=== PATIENT | female | born 1970 | race Caucasian/White ===

== ENCOUNTER 2023-06-20 16:11 | Outpatient (OUT) | payer OTHER, SELFPAY ==
--- NOTE | 2023-06-20 | XR_ITS ---
[address] [address] Patient Name: ZACHERY SLOAN MRN: [id number] date: 1970 Sex: F Assigned Patient Location: [facility] Current Patient Location: Accession/Order Number: [id number] Exam Date: 06/20/2023 16:22 Report Date: 06/21/2023 07:32 At the request of: KEISHA BATISTA Procedure: XR shoulder RT min 2V PROCEDURE: XR shoulder RT min 2V HISTORY: Shoulder impingement M75.40 ; chronic right shoulder pain COMPARISON: XR shoulder right 09/07/2021 FINDINGS: BONES:Narrowing of the acromioclavicular joint with small undersurface osteophytes. Unremarkable glenohumeral joint. No fracture, dislocation, or bone lesion. SOFT TISSUES:No visible soft tissue swelling. EFFUSION:None visible. OTHER: Negative. XR/XR shoulder RT min 2V IMPRESSION: 1. Stable mild degenerative changes of the acromioclavicular joint which may contribute to rotator cuff injury. 2. No acute bone abnormality. Electronically authenticated by: DEIDRA LANDERS Date: 06/21/2023 07:32
== END 2023-06-20 16:12 | disposition home or self-care (01) ==
LOC: RAD 16:15
PROVIDERS: PCP Family Medicine; Visit Provider Family Medicine
DX: M75.40 Impingement syndrome of unspecified shoulder (principal); M19.011 Primary osteoarthritis, right shoulder
CPT/HCPCS: 73030

== ENCOUNTER 2023-07-12 07:22 | Day surgery (SDC) | payer OTHER, SELFPAY ==
--- NOTE | 2023-07-12 07:28 | MR_ITS ---
[facility] [place] [id number] Patient Name: ZACHERY SLOAN MRN: [facility]:[id number] date: 1970 Sex: F Assigned Patient Location: MRI Current Patient Location: Accession/Order Number: [id number] Exam Date: 07/12/2023 08:40 Report Date: 07/12/2023 11:14 At the request of: KEISHA BATISTA Procedure: MR shoulder RT w con EXAMINATION: MR shoulder RT w con HISTORY: Shoulder Impingement M75.40 ; right shoulder pain, limited range of motion COMPARISON: No relevant comparison available. TECHNIQUE: A variety of imaging planes and parameters were utilized for visualization of suspected pathology. Images were performed with intra-articular contrast. FINDINGS: ROTATOR CUFF REGION CUFF TENDONS: A partial thickness tear involves the undersurface of the supraspinatus tendon. CUFF MUSCLES: Normal appearing muscles. DELTOID: Normal. No significant atrophy or tear. LONG BICEPS TENDON: Duplicated versus split tendon. No abnormal signal within the tendon or appreciable surrounding edema to suggest acute injury. LABRUM/BICEPS ANCHOR SUPERIOR: No visible labral tear or biceps anchor pathology. ANTERIOR/INFERIOR: No visible tear or attrition. POSTERIOR: No posterior labrum abnormality. CAPSULE ANTERIOR/INFERIOR: No visible capsular laxity or thickening. Type I origin of the middle glenohumeral ligament. POSTERIOR: No visible capsular laxity or thickening. AC JOINT REGION AC JOINT: Moderate osteoarthropathy with mild-moderate narrowing of the underlying coracoacromial arch. AC LIGAMENTS: Normal acromioclavicular ligament. CC LIGAMENTS: Normal coracoclavicular ligaments. ACROMION: Normal horizontal (Type I) configuration. SUBACROMIAL BURSA: Normal. No significant effusion. HYALINE CARTILAGE: Normal. No visible cartilage narrowing or focal defect. OTHER BONES: Normal proximal humerus, glenoid, and coracoid. OTHER OBSERVATIONS: Negative. No other significant findings or glenohumeral effusion. MR/MR shoulder RT w con IMPRESSION: 1. Partial-thickness tear involving the undersurface of the distal supraspinatus tendon. 2. Suspect duplicated versus split tendon of the long biceps tendon. I suspect this is developmental or chronic. 3. No appreciable labral tear. Electronically authenticated by: DEIDRA LANDERS Date: 07/12/2023 11:14
--- NOTE | 2023-07-12 07:29 | FL_ITS ---
[address] [address] Patient Name: ZACHERY SLOAN MRN: [id number] date: 1970 Sex: F Assigned Patient Location: MRI Current Patient Location: MRI Accession/Order Number: [id number] Exam Date: 07/12/2023 07:45 Report Date: 07/12/2023 10:38 At the request of: KEISHA BATISTA Procedure: FL arthrogram shoulder EXAMINATION: FL arthrogram shoulder, FL guided needle placement HISTORY: Right shoulder pain after falling COMPARISON: XR shoulder right 06/20/2023 TECHNIQUE: An arthrogram was performed under fluoroscopic guidance using non-ionic contrast material in the usual sterile manner after obtaining informed consent. Standard level fluoroscopic mode of operation utilized. FINDINGS: JOINT: Right shoulder NEEDLE: 25 gauge, 3.5 spinal needle. MEDICATION: 2 mL buffered 1% lidocaine for subcutaneous anesthesia. Approximately 8 mL injected into joint space consisting of a mixture of 5 mL Omnipaque-300, 5 mL 1% Xylocaine and 0.2 mL Dotarem. TECHNIQUE: Anterior approach under fluoroscopic guidance. CLINICAL: No change in pain following the injection. COMPLICATIONS: None. OTHER: Negative. FL/FL arthrogram shoulder IMPRESSION: 1. Technically successful arthrogram without complication. 2. Please see separate MRI arthrogram report. Electronically authenticated by: DEIDRA LANDERS Date: 07/12/2023 10:38
--- NOTE | 2023-07-12 07:29 | FL_ITS ---
[address] [address] Patient Name: ZACHERY SLOAN MRN: [facility]:[id number] date: 1970 Sex: F Assigned Patient Location: MRI Current Patient Location: MRI Accession/Order Number: [id number] Exam Date: 07/12/2023 07:45 Report Date: 07/12/2023 10:38 At the request of: KEISHA BATISTA Procedure: FL guided needle placement EXAMINATION: FL arthrogram shoulder, FL guided needle placement HISTORY: Right shoulder pain after falling COMPARISON: XR shoulder right 06/20/2023 TECHNIQUE: An arthrogram was performed under fluoroscopic guidance using non-ionic contrast material in the usual sterile manner after obtaining informed consent. Standard level fluoroscopic mode of operation utilized. FINDINGS: JOINT: Right shoulder NEEDLE: 25 gauge, 3.5 spinal needle. MEDICATION: 2 mL buffered 1% lidocaine for subcutaneous anesthesia. Approximately 8 mL injected into joint space consisting of a mixture of 5 mL Omnipaque-300, 5 mL 1% Xylocaine and 0.2 mL Dotarem. TECHNIQUE: Anterior approach under fluoroscopic guidance. CLINICAL: No change in pain following the injection. COMPLICATIONS: None. OTHER: Negative. FL/FL guided needle placement IMPRESSION: 1. Technically successful arthrogram without complication. 2. Please see separate MRI arthrogram report. Electronically authenticated by: DEIDRA LANDERS Date: 07/12/2023 10:38
[2023-07-12] MEDS: LIDOCAINE HCL 15 ML, SODIUM BICARBONATE 2 MEQ INJ (08:10)
--- NOTE | 2023-07-12 10:37 | SUR.PREOP ---
07/05/23 Pt instructed on proceure, date, time, and prep. Pt instructed to hold ASA x 5 days prior to procedure.
== END 2023-07-12 08:30 | disposition home or self-care (01) ==
LOC: MRI 07:22
PROVIDERS: Radiology Diagnostic Radiology; PCP Family Medicine; Visit Provider Family Medicine
DX: M25.511 Pain in right shoulder (principal); G89.29 Other chronic pain; M75.41 Impingement syndrome of right shoulder; M75.111 Incomplete rotator cuff tear or rupture of right shoulder, not specified as traumatic
CPT/HCPCS: 23350; 73222; 77002; A9575; Q9967

== ENCOUNTER 2024-03-29 12:35 | Outpatient (OUT) | payer OTHER, SELFPAY ==
--- OUTSIDE RECORDS SUMMARY | 2024-03-29 12:39 | XMS_ITS | CCD ---
Author Organization [facility] Care Team Providers Care Counseling Director Name Role Phone Andra Trejo Unavailable JanetLeonel Unavailable Roxi Mich Unavailable LESTER ., DR VALDES Admitting Unavailable HOY ., DR VALDES Attending Unavailable HOY ., DR VALDES Primary Care Unavailable HOY ., DR VALDES Consulting Unavailable ZIEBER, DR DEIDRA Pickering Consulting Unavailable HOY ., DR VALDES Admitting Unavailable HOY ., DR VALDES Attending Unavailable HOY ., DR VALDES Primary Care Unavailable HOY ., DR VALDES Consulting Unavailable WEST, DR JUSTO Anderson Consulting Unavailable HOY ., DR VALDES Admitting Unavailable HOY ., DR VALDES Attending Unavailable HOY ., DR VALDES Primary Care Unavailable HOY ., DR VALDES Consulting Unavailable WEST, DR JUSTO Anderson Consulting Unavailable HOY ., DR VALDES Admitting Unavailable HOY ., DR VALDES Attending Unavailable HOY ., DR VALDES Primary Care Unavailable HOY ., DR VALDES Consulting Unavailable HOY ., DR VALDES Admitting Unavailable HOY ., DR VALDES Attending Unavailable HOY ., DR VALDES Primary Care Unavailable HOY ., DR VALDES Consulting Unavailable WEST, DR JUSTO Anderson Consulting Unavailable HOY ., DR VALDES Admitting Unavailable HOY ., DR VALDES Attending Unavailable HOY ., DR VALDES Primary Care Unavailable HOY ., DR VALDES Consulting Unavailable RAVENEBER, DR DEIDRA Pickering Consulting Unavailable Keisha Escudero Primary Care Physician Garfield TREVIÑO Attending Unavailable Keisha Escudero Referring Unavailable NILL, Garfield R Admitting Unavailable NILL, Garfield R Attending Unavailable NILL, Garfield R Referring Unavailable DEIDRA NGUYEN Referring Unavailable NGUYENDEIDRA LAWRENCE Referring Unavailable Allergies Allergy Classification Reported Allergen(s) Allergy Type Date of Onset Reaction(s) Facility Unclassified (1 source) No Known Medication Allergies; Translations: [No Known Medication Allergies] Propensity to adverse reactions (disorder) [facility] Repository Medications Current Medications Medication Drug Class(es) Dates Sig (Normalized) Sig (Original) ALPRAZolam 0.25 mg oral tablet (2 sources) Benzodiazepine Start: 06-13-2023 take 1 tablet by mouth three times daily as needed for anxiety alprazolam 0.25 mg Tab 0.25 mg = 1 tab(s), Oral, TID, PRN as needed for anxiety, Refills(s) 0 Start Date: 06/13/23 Status: Ordered aspirin 81 mg delayed release oral tablet (2 sources) Platelet Aggregation Inhibitor, Nonsteroidal Anti-inflammatory Drug Start: 07-03-2023 take 1 tablet by mouth once daily aspirin 81 mg Oral EC Tab 81 mg = 1 tab(s), Oral, Daily, Refills(s) 0, Blood Thinner Start Date: 07/03/23 Status: Ordered indomethacin 50 mg oral capsule (2 sources) Nonsteroidal Anti-inflammatory Drug take 1 capsule by mouth every twelve hours Indomethacin 50 MG 1 capsule with food or milk Orally Twice a day Active Multi Vitamins oral tablet (2 sources) Start: 07-03-2023 take 1 tablet by mouth once daily Multi Vitamins oral tablet 1 tab(s), Oral, Daily, Refill(s) 0, Prophylaxis Start Date: 07/03/23 Status: Ordered Start: 07-03-2023 take 1 tablet by melecio th once daily Multi Vitamins oral tablet 1 tab(s), Oral, Daily, Refill(s) 0 Start Date: 07/03/23 Status: Ordered oxaprozin 600 mg oral tablet (2 sources) Nonsteroidal Anti-inflammatory Drug Start: 06-13-2023 take 2 tablets by mouth once daily Daypro 600 mg Tab 1,200 mg = 2 tab(s), Oral, Daily, Refills(s) 0, Pain Start Date: 06/13/23 Status: Ordered Completed/Discontinued Medications Medication Drug Class(es) Dates Sig (Normalized) Sig (Original) triamcinolone acetonide 40 mg/ml injectable suspension (2 sources) Corticosteroid Start: 10-18-2021 Kenalog-40 Oct, 40 mg Problems Active Problems Problem Classification Problem Date Documented Date Episodic/Chronic Anxiety disorders (2 sources) Anxiety 06-13-2023 Chronic Endometriosis (2 sources) Endometriosis (clinical) 06-13-2023 Chronic Headache; including migraine (2 sources) Migraine 06-13-2023 Chronic Osteoarthritis (4 sources) Arthritis of right acromioclavicular joint; Translations: [Primary osteoarthritis, right shoulder] Onset: 10-18-2021 Resolved: 11-08-2021 Chronic Other and unspecified benign neoplasm (1 source) Polyp of colon; Translations: [Polyp of colon] Onset: 08-03-2023 Episodic Other connective tissue disease (2 sources) Supraspinatus tear; Translations: [Unspecified rotator cuff tear or rupture of right shoulder, not specified as traumatic] Episodic Other nutritional; endocrine; and metabolic disorders (2 sources) Overweight 06-13-2023 Episodic Other nutritional; endocrine; and metabolic disorders (2 sources) Overweight in adulthood with body mass index of 25 or more but less than 30 07-03-2023 Episodic Other screening for suspected conditions (not mental disorders or infectious disease) (5 sources) Encounter for screening mammogram for malignant neoplasm of breast; Translations: [Screening for malignant neoplasm of colon done] Onset: 04-05-2022 Episodic Residual codes; unclassified (1 source) Family history of malignant neoplasm of breast; Translations: [FAMILY HX MALIG NEOPLASM OF BREAST] Onset: 04-10-2022 Episodic Residual codes; unclassified (1 source) Family history of malignant neoplasm of digestive organs; Translations: [FAM HX MALIG NEOPLASM DIGESTIV ORGN] Onset: 04-10-2022 Episodic Thyroid disorders (4 sources) Hypothyroidism, unspecified; Translations: [HYPOTHYROIDISM UNSPECIFIED] Onset: 04-21-2022 Chronic Unclassified (3 sources) LOW BACK PAIN, UNSPECIFIED; Translations: [LOW BACK PAIN, UNSPECIFIED] Onset: 09-09-2021 Unclassified (2 sources) Patient encounter status 07-03-2023 Past or Other Problems Problem Classification Problem Date Documented Da te Episodic/Chronic Immunizations and screening for infectious disease (1 source) Contact with and (suspected) exposure to other viral communicable diseases Onset: 02-06-2021 Resolved: 02-06-2021 Episodic Other connective tissue disease (2 sources) Unspecified rotator cuff tear or rupture of right shoulder, not specified as traumatic Onset: 10-18-2021 Resolved: 11-08-2021 Episodic Other connective tissue disease (2 sources) Other enthesopathies, not elsewhere classified Onset: 10-18-2021 Resolved: 11-08-2021 Episodic Other connective tissue disease (1 source) Impingement syndrome of right shoulder; Translations: [IMPINGEMENT SYNDROME RIGHT SHOULDER] Onset: 09-09-2021 Episodic Other non-traumatic joint disorders (4 sources) Pain in right shoulder; Translations: [PAIN IN RIGHT SHOULDER] Onset: 09-26-2021 Episodic Sprains and strains (1 source) Superior glenoid labrum lesion of right shoulder, initial encounter; Translations: [SUP GLND LABRUM LES RT SHLDR INIT] Onset: 09-28-2021 Episodic Unclassified (1 source) LOW BACK PAIN, UNSPECIFIED; Translations: [LOW BACK PAIN, UNSPECIFIED] Onset: 09-07-2021 Results Test Name Value Interpretation Reference Range Facility IntraOperative Documentson 0 08-09-2023 IntraOperative Documents [id number] [facility] Reminderson 08-08-2023 Reminders - From: Yenny Soliman LPN To: N - Clinical; Sent: 08/08/2023 10:21:58 EDT Show up: 07/03/2028 07:00:00 EDT Subject: colonoscopy recall Due Date/Time: 08/02/2028 07:00:00 EDT Reminder/Recall Patient due for surveillance colonoscopy 08/02/2028 due to history of tubular adenoma. Normal [facility] Consenton 08-06-2023 Consent [id number] [facility] Discharge Instructionson Discharge Instructions [id number] [facility] Main OR Intraoperative Recor don 08-06-2023 Main OR Intraoperative Record IntraOp Document Type FT Summary Primary Physician: KAMILA ESCOBEDO, Garfield Pickering Finalized Date/Time: 08/06/23 10:42:07 Pt. Name: ZACHERY SLOAN Luis/Sex: 1970 Female Med Rec #: [id number] Physician: Garfield TREVIÑO MD [facility] #: [id number] Pt. Type: O Room/Bed: / Admit/Disch: 08/03/23 06:51:04 - 08/03/23 23:59:59 Institution: Case Times FT Entry 1 Patient Times In Room 08/03/23 07:48:00 Out Room 08/03/23 08:10:00 Procedure Times Start 08/03/23 07:52:00 Stop 08/03/23 08:07:00 Anesthesia Times Start 08/03/23 07:48:00 Stop 08/03/23 08:10:00 Time at [place] 08/03/23 07:58:00 Last Modified By: Mayi MOYER, Rissa Craig 08/03/23 08:11:07 General Comments: 08/06/23 Chart opened for charge review per Oscar Del Valle RN. [place] Case Attendance FT Entry 1 Entry 2 Entry 3 Case Attendee Kristopher SALMON, SPOOLER OPERATOR, Queen Mayi MOYER, Val Pond Role Performed SPOOLER OPERATOR Jackscrew Man - Primary Scrub - Primary Time In 08/03/23 07:48:00 08/03/23 07:48:00 08/03/23 07:48:00 Time Out 08/03/23 08:10:00 08/03/23 08:10:00 08/03/23 08:10:00 Procedure COLONOSCOPY(.) COLONOSCOPY(.) COLONOSCOPY(.) Comments Dr. Ortega supervising case Last Modified By: Mayi RN, Rissa See RN, Rissa See RN, Rissa F 08/03/23 08:11:08 F 08/03/23 08:11:08 F 08/03/23 08:11:08 Entry 4 Entry 5 Case Attendee Lynn WAGGONER, Nga TREVIÑO MD, Garfield Silva Role Performed Staff - Other Surgeon - Primary Time In 08/03/23 07:48:00 08/03/23 07:48:00 Time Out 08/03/23 08:10:00 08/03/23 08:10:00 Procedure COLONOSCOPY(.) COLONOSCOPY(.) Comments help in room Last Modified By: Mayi RN, Rissa See RN, Rissa Craig 08/03/23 08:11:08 F 08/03/23 08:11:08 Perioperative Protocols FT Pre-Care Text: Implements protective measures prior to operative or invasive procedure, confirms identity before the operative or invasive procedure, verifies operative procedure, surgical site, and laterality Entry 1 Procedure(s) COLONOSCOPY(.) Patient Identity Birthday, ID Band Verified (select at Check, Patient least 2): Participation Consents / H and P Anesthesia Consent, Operative Site N/A Verified HandP, Surgery/Procedure Marking Verified Consent Surgical Site No Laterality Verified n/a Verified Procedure Verified Yes Correct Patient Yes Position Verified Availability Equipment, Medication Prep Dry n/a Verified (If Applicable) PreOp Antibiotic No Time Out Kristopher SALMON, BRIEN, Queen Ruben Perez NTimoteo, Val Maya, Rissa See RN, Schafer CST, KAMILA Peña MD, Michael R Time Out Complete 08/03/23 07:49:00 Outcomes Met? Yes Last Modified By: Rissa See RN 08/03/23 07:52:12 Post-Care Text: The patient is free from signs and symptoms of injury caused by extraneous objects Allergy Information FT Pre-Care Text: Verifies allergies Entry 1 Allergies Reviewed? Yes Allergies Reviewed Self/Patient With Outcomes Met? Yes Last Modified By: Rissa See RN 08/03/23 07:52:21 Post-Care Text: The patient received appropriate medication(s) safely administered during the perioperative period Surgical Procedures FT Entry 1 Procedure Description Procedure COLONOSCOPY Modifiers . Surgeon Description Colonoscopy with rectal polypectomy. Primary Procedure Yes Primary Surgeon Garfield TREVIÑO MD Start 08/03/23 07:52:00 Stop 08/03/23 08:07:00 Anesthesia Type General Surgical Service General Wound Class 2 - Clean-Contaminated Last Modified By: Rissa See RN 08/03/23 08:08:02 General Case Data FT Pre-Care Text: Classifies surgical wound, implements aseptic technique, initiates traffic control Entry 1 Case Information OR ENDO 1 FT Case Level Level 2 Wound Class 2 - Clean-Contaminated Specialty General ASA Class 2 Preop Diagnosis Screening Postop Same As Preop No Postop Diagnosis Rectal polyp Outcomes Met? Yes Last Modified By: Rissa See RN 08/03/23 08:04:15 Post-Care Text: The patient is free from signs and symptoms of infection Skin Assessment (Pre Procedure) FT Pre-Care Text: Implements protective measures to prevent skin/ tissue injury due to thermal or mechanical sources Evaluates for signs and symptoms of physical injury to skin and tissue Entry 1 Skin Integrity Intact, [place], Warm, and Skin Abnormality No Dry Outcomes Met? Yes Last Modified By: Mayi MOYER, Rissa Craig 08/03/23 07:52:49 Post-Care Text: The patient is free from signs and symptoms of injury caused by extraneous objects Patient Positioning FT Pre-Care Text: Identifies physical alterations that require additional precautions for procedure-specific positioning, verifies presence of prosthetics or corrective devices, positions the patient, evaluates the patient for signs and symptoms of injury as a result of positioning Entry 1 Procedure COLONOSCOPY(.) Body Position Lateral, right (more content not included)... Normal [facility] Postoperative Documentson Postoperative Documents [id number] Normal [facility] Colonoscopy Procedure Report on 08-03-2023 Colonoscopy Procedure Report Patient: ZACHERY SLOAN Age: 53 years Sex: Female : 1970 Associated Diagnoses: None Author: Garfield TREVIÑO MD Pre-Procedure Procedure Date 08/03/2023 08:00:00 . Procedure Type: Colonoscopy with removal of tumor(s), polyp(s), or other lesion(s) by cold snare technique. Procedure provider Performed by Garfield TREVIÑO MD. Referred by Keisha Escudero MD. Current history and physical Documented on chart. Colorectal neoplasm risk assessment Average risk. Informed Consent After discussing the rationale, risks and benefits, and alternatives to this procedure, the patient provided signed consent for the procedure. Pre-procedure diagnosis: Age 50 years or over. ASA Classification: Class II. . Monitoring: See anesthesia record. . Procedure The procedure was performed in the hospital. See anesthesia record for sedation given during procedure. Rectal exam was performed and was normal. The patient was positioned starting in the left lateral decubitus position. Endoscope type used was an adult-size. The endoscope was lubricated then introduced through the anus. The scope was advanced to the cecum verified by photographing the appendiceal orifice, verified by photographing the ileocecal valve. No difficulties encountered during the procedure. The bowel preparation quality was good and was adequate (see polyps greater than or equal to 6 millimeters). The patient tolerated the procedure well. Findings A single polyp 4 mm in size was noted. The polyp(s) is sessile (0-Is). Intervention(s) included polypectomy with cold snare. Intervention was successful. Images Procedure images: anal canal rectal polyp ileocecal valve appendiceal orifice . Post-Procedure Complications: none. Estimated blood loss: 1 milliliters. Specimens: sent to pathology. Devices/ implants: none left in place. Impression and Plan Diagnosis: Colon polyp ([id number] K63.5, Discharge, Medical). Course: Progressing as expected. Recommendations: Repeat colonoscopy:: In 5 years. Follow-up:: Await biopsy results in 3-5 days. Diet:: Regular diet. Medication resumption:: Continue current medications. Return to activities:: After 24 hours. Education and Follow-up: Counseled: Family. [facility] Comment on above: Other Comment: Dulce desouza Attachment - attachment storage system not supported [id number] Can be viewed in source systemMissing Attachment - attachment storage system not supported [id number] Can be viewed in source systemMissing Attachment - attachment storage system not supported [id number] Can be viewed in source systemMissing Attachment - attachment storage system not supported [id number] Can be viewed in source system Consent for Treatmenton 07-17 Consent for Treatment [id number]#[id number] [facility] Discharge Instructionson Discharge Instructions ZACHERY SLOAN :1970 Visit Date:08/03/2023 Inpatient Discharge Instructions Your Care Team Admitting Physician - Garfield TREVIÑO MD Referring Physician - Garfield TREVIÑO MD Reason for Your Visit SCREENING Your Diagnosis Colon polyp Tests Performed Pathology Tissue Exam -- Results Pending -- Please visit your patient portal for your results or contact your primary care physician. This Is Your Medications List alprazolam (alprazolam 0.25 mg Tab) aspirin (aspirin 81 mg Oral EC Tab) multivitamin (Multi Vitamins oral tablet) oxaprozin (Daypro 600 mg Tab) Procedure History Colonoscopy (11/2013), EGD - esophagogastroduodenoscopy (11/2013), Extraction of wisdom tooth, JOCELINE BSO - Total abdominal hysterectomy and bilateral salpingo-oophorectomy. What to do next Instructions From Your Doctor Event Name Event Result Discharge Activity Resume normal activities in 24 hours, Arrange for a responsible adult supervision for 24 hours Discharge Restrictions No driving for 24 hrs, Do not operate machinery or tools, Do not make important decisions for 24 hours, Do not drink alcoholic beverages for 24 hours Discharge Diet(s) Regular Call Your Doctor For Persistent or heavy bleeding, Temperature above 101.5 degrees, Severe pain at the operative site, Persistent vomiting Discharge Instructions Discharge Instructions New Follow Up Appointments after Discharge Follow Up with Garfield TREVIÑO When: Within 1 to 2 weeks Where: [address] [place] [address] [address] [email or web address] (1) Medications What How Much When Instructions Next Dose Unchanged alprazolam (alprazolam 0.25 mg Tab) 1 Tablets By Mouth 3 times a day as needed for as needed for anxiety Unchanged aspirin (aspirin 81 mg Oral EC Tab) 1 Tablets By Mouth Every day Unchanged multivitamin (Multi Vitamins oral tablet) 1 Tablets By Mouth Every day Unchanged oxaprozin (Daypro 600 mg Tab) 2 Tablets By Mouth Every day Test Results No qualifying data available. Allergies No Known Allergies No Known Medication Allergies Problems Ongoing - Any problem that you are currently receiving treatment for. Anxiety BMI 26.0-26.9,adult Endometriosis Migraines Overweight Screening for malignant neoplasm of colon Education Materials Colonoscopy Care After Surgery Please read the instructions outlined below and refer to this sheet in the next few weeks. These discharge instructions provide you with general information on caring for yourself after you leave the hospital. Your doctor may also give you specific instructions. While your treatment has been planned according to the most current medical practices available, unavoidable complications occasionally occur. If you have any problems or questions after discharge, please call your doctor. ACTIVITY You may resume your regular activity, but move at a slower pace for the next 24 hours. Take frequent rest periods for the next 24 hours. Walking will help get rid of the air and reduce the bloated feeling in your abdomen (belly). No driving for 24 hours (because of the anesthesia (medicine) used during the test). You may shower. Do not sign any important legal documents or operate any machinery for 24 hours (because of the anesthesia used during the test). NUTRITION Drink plenty of fluids. You may resume your normal diet as instructed by your doctor. Begin with a light meal and progress to your normal diet. Heavy or fried foods are harder to digest and may make you feel nauseated (sick to your stomach). Avoid alcoholic beverages for 24 hours or as instructed. MEDICATIONS You may resume your normal medications unless your doctor tells you otherwise. WHAT YOU CAN EXPECT TODAY Some feelings of bloating in the abdomen. Passage of more gas than usual. Spotting of blood in your stool or on the toilet paper. FOLLOW-UP Your doctor will discuss the results of your test with you. SEEK IMMEDIATE MEDICAL ATTENTION IF: There is more than a spotting of blood in your stool. There is abdominal distention (your abdomen is swollen). There is vomiting. You have a temperature over 101.5 F. There is abdominal pain or discomfort that is severe or gets worse throughout the day. Colon Polyps Colon polyps are tissue growths inside the colon, which is part of the large intestine. They are one of the types of polyps that can grow in the body. A polyp may be a round bump or a mushroom-shaped growth. You could have one polyp or more than one. Most colon polyps are noncancerous (benign). However, some colon polyps can become cancerous over time. Finding and removing the polyps early can help prevent this. What are the causes? The exact cause of colon polyps is not known. What increases the risk? The following factors may make you more likely to develop this condition: ? Having a f (more content not included)... Normal [facility] Comment on above: Result Comment: Elec tronically Signed By: Jey MOYER, Ellen Garvey\.br\Date and Time Signed: 08/03/23 08:15 EDT Inpatient Patient Summaryon 08-03-2023 Inpatient Patient Summary [place] [id number] [facility] Clinical Discharge Instructions PERSON INFORMATION Name: ZACHERY SLOAN PHYSICIANS Admitting Physician: Garfield TREVIÑO MD Attending Physician: Garfield TREVIÑO MD PCP: Keisha Escudero MD Discharge Diagnosis: Colon polyp Comment: PATIENT EDUCATION INFORMATION Instructions: Medication Leaflets: Follow up: With: Address: When: Garfield KAMILA Refugio [facility], [address], [address] [address] [facility] (1) Within 1 to 2 weeks MEDICATION LIST Medications to Continue with No Changes Other Medications alprazolam (alprazolam 0.25 mg Tab) 1 Tablets By Mouth 3 times a day as needed as needed for anxiety. aspirin (aspirin 81 mg Oral EC Tab) 1 Tablets By Mouth every day. multivitamin (Multi Vitamins oral tablet) 1 Tablets By Mouth every day. oxaprozin (Daypro 600 mg Tab) 2 Tablets By Mouth every day. Comment: Normal [facility] Main OR PACU I Recordon 07-17 Main OR PACU I Record PACU Phase I Document Type FT Summary Primary Physician: Garfield TREVIÑO MD Finalized Date/Time: 08/03/23 09:14:47 Pt. Name: ZACHERY SLOAN /Sex: 1970 Female Med Rec #: [id number] Physician: Garfield TREVIÑO MD Financial #: [id number] Pt. Type: O Room/Bed: / Admit/Disch: 08/03/23 06:51:04 - Institution: Case Times PACU I FT Pre-Care Text: Identifies barriers to communication and implements measures to provide psychological support Develops individualized plan of care, and ensures continuity of care Maintains patient's dignity and privacy, and maintains patient confidentiality Identifies and reports philosophical, cultural, and spiritual beliefs and values Identifies individual values and wishes concerning care Implements aseptic technique, and administers prescribed antibiotic therapy and immunizing agents as ordered Evaluates postoperative tissue perfusion Implements thermoregulation measures, and monitors body temperature Evaluates postoperative respiratory status Evaluates postoperative cardiac status Evaluates postoperative neurological status Assesses pain control, collaborated in initiating patient-controlled analgesia and implements alternative methods of pain control Verifies allergies, administers prescribed medications and solutions, evaluates response to medications Entry 1 In PACU I 08/03/23 08:11:00 Discharge from PACU 08/03/23 08:59:00 I Outcomes Met? Yes Last Modified By: Ellen Khanna RN 08/03/23 09:14:28 Post-Care Text: The patient demonstrates knowledge of the expected response to the operative or invasive procedure The patient's care is consistent with the individualized perioperative plan of care The patient's right to privacy is maintained The patient's value system, lifestyle, ethnicity, and culture are considered, respected, and incorporated into the perioperative plan of care The patient participates in decisions affecting his or her perioperative plan of care The patient is free from signs and symptoms of infection The patient has wound/tissue perfusion consistent with or improved from baseline levels established preoperatively The patient is at or returning to normothermia at the conclusion of the immediate postoperative period The patient's respiratory function is consistent with or improved from baseline levels established preoperatively The patient's cardiovascular status is consistent with or improved from baseline levels established preoperatively The patient's cardiovascular status is consistent with or improved from baseline levels established preoperatively The patient demonstrates and/or reports adequate pain control throughout the perioperative period The patient received appropriate medication(s), safely administered during the perioperative period Acuity Level PACU I FT Entry 1 Start Time 08/03/23 08:11:00 Stop Time 08/03/23 08:59:00 Acuity Level Acuity Level I Last Modified By: Ellen Khanna RN 08/03/23 09:14:43 Finalized By: Ellen Khanna RN Document Signatures Signed By: Ellen Khanna RN 08/03/23 09:14 Normal [facility] Main OR Preoperative Recordo n 08-03-2023 Main OR Preoperative Record Holding Area Document Type FT Summary Primary Physician: Garfield TREVIÑO MD Finalized Date/Time: 08/03/23 07:08:42 Pt. Name: PRICILLACOLTONZACHERY/Sex: 1970 Female Med Rec #: [id number] Physician: Garfield TREVIÑO MD Financial #: [id number] Pt. Type: O Room/Bed: / Admit/Disch: 08/03/23 06:51:04 - Institution: Case Times Holding FT Pre-Care Text: Verifies consent for planned procedure, identifies individual values and wishes concerning care, includes family members in perioperative teaching Secures patient's records' belongings, and valuables, maintains patient's dignity and privacy, and maintains patient confidentiality Entry 1 In Holding 08/03/23 07:02:00 Outcomes Met? Yes Last Modified By: Rissa See RN 08/03/23 07:04:09 Post-Care Text: The patient participates in decisions affecting his or her perioperative plan of care The patient's right to privacy is maintained Surgery Checklist FT Entry 1 Patient Birthday, ID Band Procedure History and Physical, Identification: Check, Patient Verification: Surgical Consent, With Participation Patient NPO after Midnight: Yes Date/Time: 08/03/23 02:30:00 Personal Items: Glasses, Jewelry Personal Items glasses, watch, Comment: clothes, shoes, earrings x4, ring Limitations: right shoulder chronic Complaints of Pain: Yes pain Pain Comment: denies Operative Site n/a Marking: Marked By: n/a Availability Equipment Verified: Does Patient Smoke No Patient states Yes Comment - Adult spouse - Jesus postop adult Supervision supervision available Case Cancelled in No Holding Area see comments below for reason Last Modified By: Rissa See RN 08/03/23 07:08:40 General Comments: Pt finished colon prep at 0230, states stool is clear liquid yellow. /,RN Finalized By: Rissa See RN Document Signatures Signed By: Rissa See RN 08/03/23 07:05 Rissa See RN 08/03/23 07:08 Normal [facility] Monitor Recordon 08-03-2023 Monitor Record [id number] Normal [facility] Monitor Record [id number] Normal [facility] Outpatient Surgery Discharge Instructionon 08-03-2023 Outpatient Surgery Discharge Instruction [address] [address] Patient Discharge Instructions PERSON INFORMATION Name: ZACHERY SLOAN Date of : 1970 Current Date: 08/03/2023 08:13:26 PHYSICIANS Admitting Physician: KAMILA ESCOBEDO, Garfield Pickering Discharge Diagnosis: Colon polyp ZACHERY SLOAN has been given the following list of follow-up instructions, prescriptions, and patient education materials: PATIENT FOLLOW-UP INFORMATION Diet: Regular Discharge Activity: Resume normal activities in 24 hours, Arrange for a responsible adult supervision for 24 hours Discharge Restrictions: No driving for 24 hrs, Do not operate machinery or tools, Do not make important decisions for 24 hours, Do not drink alcoholic beverages for 24 hours Call Your Doctor For: Persistent or heavy bleeding, Temperature above 101.5 degrees, Severe pain at the operative site, Persistent vomiting IF UNABLE TO CONTACT YOUR PHYSICIAN AND YOU FEEL IT IS AN EMERGENCY, GO TO THE NEAREST EMERGENCY ROOM OR CALL 911 I, ZACHERY SLOAN, have received the attached patient education materials/instructions and have verbalized understanding: May we do a follow up call? Yes No I was present when discharge instructions were given __ Patient Signature Date Clinican/Nurse Signature Date Follow up: With: Address: When: Garfield TREVIÑO [address] [place] [address], [facility] [address], [place] [address] [facility] (1) Within 1 to 2 weeks Pharmacy Information: You may receive a survey from [employer] asking you to rate your care experience. Your feedback is important and will help us understand what we do well and how we can improve the quality of care we provide to you, your loved ones and our community. It?s an honor to serve you. Thank you for choosing [facility] HERE ARE THE MEDICATION CHANGES THAT OCCURRED DURING YOUR HOSPITAL STAY Medications to Continue with No Changes Other Medications alprazolam (alprazolam 0.25 mg Tab) 1 Tablets By Mouth 3 times a day as needed as needed for anxiety. aspirin (aspirin 81 mg Oral EC Tab) 1 Tablets By Mouth every day. multivitamin (Multi Vitamins oral tablet) 1 Tablets By Mouth every day. oxaprozin (Daypro 600 mg Tab) 2 Tablets By Mouth every day. PATIENT EDUCATION INFORMATION Instructions: Medication Leaflets: [facility] Patient Education - Texton 0 08-03-2023 Patient Education - Text Colonoscopy Care After Surgery Please read the instructions outlined below and refer to this sheet in the next few weeks. These discharge instructions provide you with general information on caring for yourself after you leave the hospital. Your doctor may also give you specific instructions. While your treatment has been planned according to the most current medical practices available, unavoidable complications occasionally occur. If you have any problems or questions after discharge, please call your doctor. ACTIVITY You may resume your regular activity, but move at a slower pace for the next 24 hours. Take frequent rest periods for the next 24 hours. Walking will help get rid of the air and reduce the bloated feeling in your abdomen (belly). No driving for 24 hours (because of the anesthesia (medicine) used during the test). You may shower. Do not sign any important legal documents or operate any machinery for 24 hours (because of the anesthesia used during the test). NUTRITION Drink plenty of fluids. You may resume your normal diet as instructed by your doctor. Begin with a light meal and progress to your normal diet. Heavy or fried foods are harder to digest and may make you feel nauseated (sick to your stomach). Avoid alcoholic beverages for 24 hours or as instructed. MEDICATIONS You may resume your normal medications unless your doctor tells you otherwise. WHAT YOU CAN EXPECT TODAY Some feelings of bloating in the abdomen. Passage of more gas than usual. Spotting of blood in your stool or on the toilet paper. FOLLOW-UP Your doctor will discuss the results of your test with you. SEEK IMMEDIATE MEDICAL ATTENTION IF: There is more than a spotting of blood in your stool. There is abdominal distention (your abdomen is swollen). There is vomiting. You have a temperature over 101.5 F. There is abdominal pain or discomfort that is severe or gets worse throughout the day. Oncology Colon Polyps Colon polyps are tissue growths inside the colon, which is part of the large intestine. They are one of the types of polyps that can grow in the body. A polyp may be a round bump or a mushroom-shaped growth. You could have one polyp or more than one. Most colon polyps are noncancerous (benign). However, some colon polyps can become cancerous over time. Finding and removing the polyps early can help prevent this. What are the causes? The exact cause of colon polyps is not known. What increases the risk? The following factors may make you more likely to develop this condition: ? Having a family history of colorectal cancer or colon polyps. ? Being older than 45 years of age. ? Being younger than 45 years of age and having a significant family history of colorectal cancer or colon polyps or a genetic condition that puts you at higher risk of getting colon polyps. ? Having inflammatory bowel disease, such as ulcerative colitis or Crohn's disease. ? Having certain conditions passed from parent to child (hereditary conditions), such as: ? Familial adenomatous polyposis (FAP). ? Mckeon syndrome. ? Turcot syndrome. ? Peutz?Jeghers syndrome. ? MUTYH-associated polyposis (MAP). ? Being overweight. ? Certain lifestyle factors. These include smoking cigarettes, drinking too much alcohol, not getting enough exercise, and eating a diet that is high in fat and red meat and low in fiber. ? Having had childhood cancer that was treated with radiation of the abdomen. What are the signs or symptoms? Many times, there are no symptoms. If you have symptoms, they may include: ? Blood coming from the rectum during a bowel movement. ? Blood in the stool (feces). The blood may be bright red or very dark in color. ? Pain in the abdomen. ? A change in bowel habits, such as constipation or diarrhea. How is this diagnosed? This condition is diagnosed with a colonoscopy. This is a procedure in which a lighted, flexible scope is inserted into the opening between the buttocks (anus) and then passed into the colon to examine the area. Polyps are sometimes found when a colonoscopy is done as part of routine cancer screening tests. How is this treated? This condition is treated by removing any polyps that are found. Most polyps can be removed during a colonoscopy. Those polyps will then be tested for cancer. Additional treatment may be needed depending on the results of testing. Follow these instructions at home: Eating and drinking ? Eat foods that are high in fiber, such as fruits, vegetables, and whole grains. ? Eat foods that are high in calcium and vitamin D, such as milk, cheese, yogurt, eggs, liver, fish, and broccoli. ? Limit foods that are high in fat, such as fried foods and desserts. ? Limit the amount of red meat, precooked or cured meat, or other processed meat that you eat, such as hot dogs, sausages, stroud, or meat loaves. ? Limit sug (more content not included)... Normal [facility] Progress Note-Physicianon Progress Note-Physician Patient: ZACHERY SLOAN Age: 53 years Sex: Female : 1970 Associated Diagnoses: None Author: Nirmal Ortega Jr., DO Postoperative Information Postoperative disposition: Postoperative disposition: Home. Optimetrix number: Optimetrix number [id number]. Anesthetic utilized: General. Physical Examination Vital Signs 08/03/2023 8:40 EDT Heart Rate Monitored 68 bpm Respiratory Rate Monitored 20 br/min Systolic Blood Pressure 123 mmHg Diastolic Blood Pressure 90 mmHg HI SpO2 100 % 08/03/2023 8:25 EDT Heart Rate Monitored 64 bpm Respiratory Rate Monitored 15 br/min Systolic Blood Pressure 116 mmHg Diastolic Blood Pressure 78 mmHg SpO2 100 % 08/03/2023 8:20 EDT Heart Rate Monitored 67 bpm Respiratory Rate Monitored 18 br/min Systolic Blood Pressure 109 mmHg Diastolic Blood Pressure 72 mmHg SpO2 100 % 08/03/2023 8:15 EDT Heart Rate Monitored 71 bpm Respiratory Rate Monitored 12 br/min Systolic Blood Pressure 105 mmHg Diastolic Blood Pressure 66 mmHg SpO2 100 % 08/03/2023 8:11 EDT Temperature Temporal Artery 36.6 DegC Heart Rate Monitored 75 bpm Respiratory Rate Monitored 15 br/min Systolic Blood Pressure 99 mmHg Diastolic Blood Pressure 67 mmHg SpO2 100 % Pain Assessment: Controlled. General: Awake, Alert, Appropriate. Respiratory: Adequate air exchange, Non-labored. Cardiovascular: Stable, Normal peripheral perfusion. Neurological: Neurologic exam at baseline. No changes.. Assessment Anesthetic outcome No anesthetic complications noted. No nausea/vomiting. Review / Management Condition: Stable. Plan Transfer/Discharge: Transfer/Discharge Discharge when meets criteria ( From PACU to Ambulatory Surgery Unit, and To home ). Normal [facility] Comment on above: Result Comment: Elec tronically Signed By: Nirmal Ortega Jr., DO\.br\Date and Time Signed: 08/03/23 10:19 EDT Progress Note-Physician Patient: ZACHERY SLOAN Age: 53 years Sex: Female : 1970 Associated Diagnoses: None Author: Nirmal Ortega Jr., DO Preoperative Information Anesthesia history: Patient history: No prior anesthetic problems. Informed consent: Signed by patient. Re-evaluation prior to induction: Initial evaluation reviewed: No significant change. Review of Systems Respiratory: Negative except as documented in history of present illness. Cardiovascular: Negative except as documented in history of present illness. Health Status Allergies: Allergic Reactions (Selected) No Known Allergies No Known Medication Allergies, Allergies (2) Active Severity Reaction No Known Allergies None Documented No Known Medication Allergies None Documented Current medications: (Selected) Inpatient Medications Ordered Lactated Ringers IV Sera 1000 mL 1,000 mL: 1,000 mL, IV, 100 mL/hr, Routine, Start date 08/03/23 7:15:00 EDT, 10 hour(s), Total volume (mL): 1,000, 74 kg, 1.85, m2 Sodium Chloride 0.9% IV Sera 1000 mL 1,000 mL: 1,000 mL, IV, 20 mL/hr, Routine, Start date 08/03/23 6:36:00 EDT, 50 hour(s), Total volume (mL): 1,000, 74 kg, 1.85, m2 Documented Medications Documented Daypro 600 mg Tab: 1,200 mg = 2 tab(s), Oral, Daily, Refills(s) 0, Pain Multi Vitamins oral tablet: 1 tab(s), Oral, Daily, Refill(s) 0, Prophylaxis alprazolam 0.25 mg Tab: 0.25 mg = 1 tab(s), Oral, TID, PRN as needed for anxiety, Refills(s) 0 aspirin 81 mg Oral EC Tab: 81 mg = 1 tab(s), Oral, Daily, Refills(s) 0, Blood Thinner, Home Medications (4) Active alprazolam 0.25 mg Tab 0.25 mg = 1 tab(s), PRN, Oral, TID aspirin 81 mg Oral EC Tab 81 mg = 1 tab(s), Oral, Daily Daypro 600 mg Tab 1,200 mg = 2 tab(s), Oral, Daily Multi Vitamins oral tablet 1 tab(s), Oral, Daily , Medications (2) Active Scheduled: (0) Continuous: (2) Lactated Ringers 1,000 mL 1,000 mL, IV, 100 mL/hr Sodium Chloride 0.9% 1,000 mL 1,000 mL, IV, 20 mL/hr PRN: (0) Problem list: All Problems Anxiety / SNOMED CT 97557255 / Confirmed BMI 26.0-26.9,adult / SNOMED CT 7138956306 / Confirmed Endometriosis / SNOMED CT 229222945 / Confirmed Migraines / SNOMED CT 67598212 / Confirmed Overweight / SNOMED CT 672257826 / Confirmed Screening for malignant neoplasm of colon / SNOMED CT 425583724 / Confirmed Histories Past Medical History: No active or resolved past medical history items have been selected or recorded. Procedure history: Colonoscopy (847516498) in the month of 11/2013 at 43 Years. EGD - esophagogastroduodenoscopy (8583718548) in the month of 11/2013 at 43 Years. Extraction of wisdom tooth (149588072). JOCELINE BSO - Total abdominal hysterectomy and bilateral salpingo-oophorectomy (3264120765). Social History Social & Psychosocial Habits Alcohol 07/03/2023 Risk Assessment: Denies Alcohol Use Substance Abuse 07/03/2023 Risk Assessment: Denies Substance Abuse Tobacco 07/03/2023 Tobacco Use: Former smoker, quit more Smokeless tobacco use: Never Type: Cigarettes Tobacco use per day: 0.5 Started at age: 21.0 Years Stopped at age: 36 Years . Physical Examination Measurements from flowsheet : Measurements 08/03/2023 7:05 EDT Height/Length Measured 166 cm Height/Length Dosing 166.0 cm Weight Dosing 74.0 kg BSA Measured 1.85 m2 Body Mass Index Measured 26.85 kg/m2 Weight Measured 74 kg Airway: Mallampati classification: II (soft palate, fauces, uvula visible). Respiratory: Lungs are clear to auscultation, Respirations are non-labored. Cardiovascular: Regular rhythm. Plan [place] [employer]hesi[employer] (ASA) physical status classification: Class II. Anesthetic Preoperative Plan: Anesthesia General, and -TIVA. Normal [facility] Comment on above: Result Comment: Elec tronically Signed By: Nirmal Ortega Jr., DO.br\Date and Time Signed: 08/03/23 07:16 EDT Insurance Correspondenceon 0 07-16-2023 Insurance Correspondence [id number] [facility] Ambulatory Visit Summaryon 0 07-03-2023 Ambulatory Visit Summary ZACHERY SLOAN :1970 Visit Date:07/03/2023 Ambulatory Visit Instructions Your Care Team Attending Physician - KAMILA ESCOBEDO, Garfield Pickering Primary Care Physician - Keisha Escudero MD Referring Physician - Keisha Escudero MD This Is Your Medications List aspirin (aspirin 81 mg Oral EC Tab) Contact prescribing physician if questions or concerns alprazolam (alprazolam 0.25 mg Tab) multivitamin (Multi Vitamins oral tablet) oxaprozin (Daypro 600 mg Tab) Procedures Performed Colonoscopy (11/2013), EGD - esophagogastroduodenoscopy (11/2013), Extraction of wisdom tooth, JOCELINE BSO - Total abdominal hysterectomy and bilateral salpingo-oophorectomy. Discharge Vitals Heart Rate (Peripheral) 81 Respiratory Rate 16 Blood Pressure 116/82 Height 166 cm Height 65 in Weight 74.0 kg Weight 162.8 lb BMI 26.85 Medications What How Much When Instructions Unchanged aspirin (aspirin 81 mg Oral EC Tab) 1 Tablets By Mouth Every day Unchanged alprazolam (alprazolam 0.25 mg Tab) 1 Tablets By Mouth 3 times a day as needed for as needed for anxiety Contact prescribing physician if questions or concerns Unchanged multivitamin (Multi Vitamins oral tablet) 1 Tablets By Mouth Every day Contact prescribing physician if questions or concerns Unchanged oxaprozin (Daypro 600 mg Tab) 2 Tablets By Mouth Every day Contact prescribing physician if questions or concerns Allergies No Known Allergies No Known Medication Allergies Problems Ongoing - Any problem that you are currently receiving treatment for. Anxiety BMI 26.0-26.9,adult Endometriosis Migraines Overweight Patient Survey You may receive a survey via text or e-mail asking about your office visit. Please share your experience with us by completing your survey. We appreciate your feedback and thank you for choosing us for your care. [facility] Consent for Procedure/Surger yon 07-03-2023 Consent for Procedure/Surgery [id number]#[id number] [facility] Physician Referralon 024 Physician Referral [id number] [facility] US THYROIDon 04-21-2022 US THYROID EXAMINATION: US THYR OID HISTORY: Hypothyroidism COMPARISON: No relevant comparison available. FINDINGS: RIGHT LOBE: Normal size and echotexture. Lobe size: 5.0 x 1.3 x 1.3 cm LEFT LOBE: Normal size and echotexture. Lobe size: 4.5 x 1.1 x 1.60 m ISTHMUS: Normal size and echotexture. Thickness: 2 mm IMPRESSION: 1. Normal ultrasound appearance of the thyroid gland. Electronically authenticated by: DEIDRA LANDERS Date: 2022-04-21 09:47 Normal [facility] THY SCAN W [place] 04-14-19 23 NM THY SCAN W UPT EXAMINATION: NM THY SCAN W UPT HISTORY: Hypothyroidism COMPARISON: No relevant comparison available. TECHNIQUE: After obtaining patient consent, 261 uCi I-123 was administered orally. Uptake was evaluated between 4 and 6 hours and at 24 hours. Images were acquired at 4 - 6 hours. FINDINGS: THYROID SCAN: Asymmetric enlargement of the right thyroid lobe with no focal hot or cold nodule 6 hour uptake: 14.6% slightly above the normal range which is 6-40% 24 hour uptake: 27.9%, within normal range of 10-30% IMPRESSION: Slightly asymmetrically enlarged right thyroid lobe, ultrasound follow-up recommended Electronically authenticated by: JUSTO DALTON Date: 2022-04-14 07:43 Normal [facility] MAMM SCREEN 3D ESEQUIEL CADon 04-05-2022 MG MAMM SCREEN 3D ESEQUIEL CAD Patient: ZACHERY SLOAN Exam Date: 04/05/2022 : 1970 Gender:F Ordering : DR KEISHA ESCUDERO . Admission #: [id number] Family : Order #: [id number] CLICK HERE TO VIEW EXAM RADIOLOGY REPORT PROCEDURE: MAMMOGRAM SCREENING 3D BILATERAL CAD COMPARISON: DIGITIZED_MAMMO, 01/10/2007. MG MAMM ESEQUIEL SCRN W CAD DIG, 08/27/2013. INDICATIONS: Screening mammography Calculator Name NCI Breast Cancer Risk Assessment Tool 5 Year Breast Cancer Risk 0.90% Lifetime Breast Cancer Risk 8.00% Personal Breast Cancer No Personal Ovarian Cancer No Treatments None Family Cancers Grandmother-paternal with breast cancer at age 70; Mother with colon cancer at age 65; Father with pancreatic cancer at age 59. LOCATION: [facility] BREAST COMPOSITION: Heterogeneously dense,which may obscure small masses. FINDINGS: DIAGNOSTIC CATEGORY 2--BENIGN FINDING: This exam includes additional mammographic views for implant evaluation and shows no visible implant abnormality. RIGHT BREAST: No significant suspicious finding. LEFT BREAST: No significant suspicious finding. RECOMMENDATIONS: ROUTINE MAMMOGRAM AND CLINICAL EVALUATION IN 12 MONTHS. PLEASE NOTE: A NORMAL MAMMOGRAM DOES NOT EXCLUDE THE POSSIBILITY OF BREAST CANCER. A CLINICALLY SUSPICIOUS PALPABLE LUMP SHOULD BE BIOPSIED. Dictated by: Justo Dalton MD on 04/05/2022 at 08:10 Approved by: Justo Dalton MD on 04/05/2022 at 08:12 Normal [facility] INSULINon 03-15-2022 Insulin 1.6 uIU/mL Critically low 2.6-24.9 [facility] Comment on above: Performed By: #### I NSULIN #### [facility] [address] [address] [address] Osie Garcia CBC AUTO DIFFon 03-14-2022 BASO # 0.1 103/ul Normal 0.0-0.1 [facility] Comment on above: Performed By: #### I NSULIN #### [facility] [address] [place] [address] Dr. Osei Garcia Basophils/100 WBC (Bld) 1.0 % Normal 0.2-2.0 [facility] Comment on above: Performed By: #### I NSULIN #### [facility] [address] [place] [address] Dr. Osei Garcia EO # 0.2 103/ul Normal 0.0-0.7 [facility] Comment on above: Performed By: #### I NSULIN #### [facility] [address] [place] [address] Dr. Osei Garcia Eosinophils/100 WBC (Bld) 3.2 % Normal 0.9-7.0 [facility] Comment on above: Performed By: #### I NSULIN #### [facility] [address] [place] [address] Dr. Osei Garcia Erythrocyte distribution width (RBC) [Ratio] 12.5 % Normal 11.0-15.0 [facility] Comment on above: Performed By: #### I NSULIN #### [facility] [address] [place] [address] Dr. Osei Garcia Hematocrit (Bld) [Volume fraction] 41.5 % Normal 36.0-48.0 [facility] Comment on above: Performed By: #### I NSULIN #### [facility] [address] [place] [address] Dr. Osei Garcia Hemoglobin (Bld) [Mass/Vol] 14.0 g/dL Normal 12.0-16.0 [facility] Comment on above: Performed By: #### I NSULIN #### [facility] [address] [place] [address] Dr. Osei Garcia IG # 0.04 10e3/ul Critically high 0.00-0.03 [facility] Comment on above: Performed By: #### I NSULIN #### [facility] [address] [address] [address] Osei Garcia IG % 0.6 % Critically high 0.0-0.5 [facility] Comment on above: Performed By: #### I NSULIN #### [facility] [address] [address] [address] Osei Garcia LYMPH # 0.9 103/ul Critically low 1.2-3.8 [facility] Comment on above: Performed By: #### I NSULIN #### [facility] [address] [address] [address] Osei Garcia Lymphocytes/100 WBC (Bld) 13.3 % Critically low 20.5-60.0 [facility] Comment on above: Performed By: #### I NSULIN #### [facility] [address] [place] [address] Dr. Osei Garcia MANUAL DIFF REQ NO Normal [facility] Comment on above: Performed By: #### I NSULIN #### [facility] [address] [address] [address] Osei Garcia MCH (RBC) [Entitic mass] 29.9 pg Normal 26.7-34.0 [facility] Comment on above: Performed By: #### I NSULIN #### [facility] [address] [place] [address] Dr. Osei Garcia MCHC (RBC) [Mass/Vol] 33.7 g/dL Normal 29.9-35.2 [facility] Comment on above: Performed By: #### I NSULIN #### [facility] [address] [place] [address] Dr. Osei Garcia MCV (RBC) [Entitic vol] 88.5 fL Normal 81.0-99.0 [facility] Comment on above: Performed By: #### I NSULIN #### [facility] [address] [address] [address] Osei Garcia MONO # 0.6 103/ul Normal 0.3-0.8 [facility] [facility]: Performed By: #### I NSULIN #### [facility] [address] [address] [address] Osei Garcia Monocytes/100 WBC (Bld) 9.0 % Normal 1.7-12.0 [facility] Comment on above: Performed By: #### I NSULIN #### [facility] [address] [place] [address] Dr. Osei Garcia NEUT # 5.1 103/ul Normal 1.4-6.5 [facility] Comment on above: Performed By: #### I NSULIN #### [facility] [address] [place] [address] Dr. Osei Garcia Neutrophils/100 WBC (Bld) 72.9 % Normal 43.0-75.0 [facility] Comment on above: Performed By: #### I NSULIN #### [facility] [address] [place] [address] Dr. Osei Garcia Platelet mean volume (Bld) [Entitic vol] 9.4 fL Critically low 9.5-13.5 [facility] Comment on above: Performed By: #### I NSULIN #### [facility] [address] [place] [address] Dr. Osei Garcia PLT 298 103/ul Normal 150-450 [facility] Comment on above: Performed By: #### I NSULIN #### [facility] [address] [place] [address] Dr. Osei Garcia RBC 4.69 106/ul Normal 4.20-5.40 [facility] Comment on above: Performed By: #### I NSULIN #### [facility] [address] [place] [address] Dr. Osei Garcia WBC 7.0 103/ul Normal 4.0-11.0 [facility] Comment on above: Performed By: #### I NSULIN #### [facility] [address] [place] [address] Dr. Osei Garcia FREE THYROXINE INDEX T7on FTI 3.15 Normal 1.30-4.50 [facility] Comment on above: Performed By: #### I NSULIN #### [facility] [address] [place] [address] Dr. Osei Garcia T3U 38.0 % Normal 30.0-39.0 [facility] Comment on above: Performed By: #### I NSULIN #### [facility] [address] [place] [address] Dr. Osei Garcia T4 [Mass/Vol] 8.30 ug/dL Normal 4.80-13.90 [facility] Comment on above: Performed By: #### I NSULIN #### [facility] [address] [place] [address] Dr. Osei Garcia GLYCOHEMOGLOBIN A1Con 2021 ADA RECOMMENDATION SEE BELOW Normal [facility] Comment on above: Result Comment: ADA RECOMMENDED LIMIT 4.0 - 6.0 ADA THERAPEUTIC TARGET < 7.0 ACTION SUGGESTED > 7.0 Performed By: #### I NSULIN #### [facility] [address] [place] [address] Dr. Osei Garcia Glucose [Mass/Vol] 103 mg/dL Normal [facility] Comment on above: Performed By: #### I NSULIN #### [facility] [address] [place] [address] Dr. Osei Garcia HbA1c (Bld) [Mass fraction] 5.2 % Normal 4.5-6.2 [facility] Comment on above: Performed By: #### I NSULIN #### [facility] [address] [place] [address] Dr. Osei Garcia IRONon 03-14-2022 Iron [Mass/Vol] 57.0 ug/dL Normal 50.0-170.0 [facility] Comment on above: Performed By: #### I PINA #### [facility] [address] [place] [address] Dr. Osei Garcia LIPID PROFILEon 03-14-2022 CHOL-HDL RATIO NORM SEE BELOW Normal [facility] Comment on above: Result Comment: 3.3 - 4.4 LOW RISK 4.4 - 7.1 AVERAGE RISK 7.1 - 11.0 MODERATE RISK >11.0 HIGH RISK Performed By: #### I NSULIN #### [facility] [address] [address] [address] Osei Garcia Cholesterol [Mass/Vol] 192 mg/dL Normal <=200 [facility] Comment on above: Performed By: #### I NSULIN #### [facility] [address] [place], [place] [address] Dr. Osei Garcia Cholesterol in HDL [Mass/Vol] 63 mg/dL Critically high 40-60 [facility] Comment on above: Performed By: #### I NSULIN #### [facility] [address] [address] [address] Osei Garcia Cholesterol in LDL [Mass/Vol] 117.6 mg/dL Normal [facility] Comment on above: Performed By: #### I NSULIN #### [facility] [address] [address] [address] Osei Garcia Cholesterol.total/ Cholesterol in HDL [Mass ratio] 3.0 {ratio} Normal [facility] Comment on above: Performed By: #### I NSULIN #### [facility] [address] [address] [address] Osei Garcia HDL NORMAL > or = 60 mg/dl - LO W CARDIOVASCULAR RISK <40 mg/dl - HIGH CARDIOVASCULAR RISK Normal [facility] Comment on above: Performed By: #### I NSULIN #### [facility] [address] [address] [address] Osei Garcia LDL CALC NORMAL SEE BELOW Normal The [facility] Comment on above: Result Comment: <100 mg/dl OPTIMAL 100 - 129 mg/dl NEAR OR ABOVE OPTIMAL 130 - 159 mg/dl BORDERLINE HIGH 160 - 189 mg/dl HIGH >190 mg/dl VERY HIGH Performed By: #### I NSULIN #### [facility] [address] [address] [address] Osei Garcia Triglyceride [Mass/Vol] 57 mg/dL Normal <=150 [facility] Comment on above: Performed By: #### I NSULIN #### [facility] [address] [address] [address] Osei Garcia VLDL CALC 11.4 mg/dL Normal [facility] Comment on above: Performed By: #### I NSULIN #### [facility] [address] [address] [address] Osei Garcia PROF 14(COMP METB)on 022 Albumin [Mass/Vol] 4.2 g/dL Normal 3.4-5.0 [facility] Comment on above: Performed By: #### I NSULIN #### [facility] [address] [address] [address] Osei Garcia Albumin/Globulin [Mass ratio] 1.2 {ratio} Normal [facility] Comment on above: Performed By: #### I NSULIN #### [facility] [address] [place] [address] Dr. Osei Garcia ALP [Catalytic activity/Vol] 77 U/L Normal 46-116 [facility] Comment on above: Performed By: #### I NSULIN #### [facility] [address] [place] [address] Dr. Osei Garcia ALT [Catalytic activity/Vol] 18 U/L Normal 14-59 [facility] Comment on above: Performed By: #### I NSULIN #### [facility] [address] [place] [address] Dr. Osei Garcia Anion gap [Moles/Vol] 11.5 mmol/L Normal [facility] Comment on above: Performed By: #### I NSULIN #### [facility] [address] [place] [address] Dr. Osei Garcia AST [Catalytic activity/Vol] 15 U/L Normal 15-37 [facility] Comment on above: Performed By: #### I NSULIN #### [facility] [address] [place] [address] Dr. Osei Garcia Bilirubin [Mass/Vol] 0.3 mg/dL Normal 0.2-1.0 [facility] Comment on above: Performed By: #### I NSULIN #### [facility] [address] [place] [address] Dr. Osei Garcia Calcium [Mass/Vol] 8.8 mg/dL Normal 8.5-10.1 [facility] Comment on above: Performed By: #### I NSULIN #### [facility] [address] [address] [address] Osei Garcia Chloride [Moles/Vol] 104 mmol/L Normal 98-107 [facility] Comment on above: Performed By: #### I NSULIN #### [facility] [address] [address] [address] Osei Garcia CO2 [Moles/Vol] 27.6 mmol/L Normal 21.0-32.0 [facility] Comment on above: Performed By: #### I NSULIN #### [facility] [address] [address] [address] Osei Garcia Creatinine [Mass/Vol] 0.86 mg/dL Normal 0.55-1.02 [facility] Comment on above: Performed By: #### I NSULIN #### [facility] [address] [place] [address] Dr. Osei Garcia EGFR-AF FINNISH >60 Normal >=60 [facility] Comment on above: Performed By: #### I NSULIN #### [facility] [address] [address] [address] Osei Garcia EGFR-NON AF FINNISH >60 Normal >=60 [facility] Comment on above: Performed By: #### I NSULIN #### [facility] [address] [place] [address] Dr. Osei Garcia Globulin (S) [Mass/Vol] 3.5 g/dL Normal [facility] Comment on above: Performed By: #### I NSULIN #### [facility] [address] [address] [address] Osei Garcia Glucose [Mass/Vol] 96 mg/dL Normal 74-106 [facility] Comment on above: Performed By: #### I NSULIN #### [facility] [address] [address] [address] Osei Garcia Potassium [Moles/Vol] 4.1 mmol/L Normal 3.5-5.1 [facility] Comment on above: Performed By: #### I NSULIN #### [facility] [address] [address] [address] Osei Garcia Protein [Mass/Vol] 7.7 g/dL Normal 6.4-8.2 [facility] Comment on above: Performed By: #### I NSULIN #### [facility] [address] [address] [address] Osei Garcia Sodium [Moles/Vol] 139 mmol/L Normal 136-145 [facility] Comment on above: Performed By: #### I NSULIN #### [facility] [address] [address] [address] Osei Garcia Urea nitrogen [Mass/Vol] 20.0 mg/dL Critically high 7.0-18.0 [facility] Comment on above: Performed By: #### I NSULIN #### [facility] [address] [address] [address] Osei Garcia Urea nitrogen/Creatinin e [Mass ratio] 23.3 mg/mg Normal [facility] Comment on above: Performed By: #### I NSULIN #### [facility] [address] [address] [address] Osei Garcia TSHon 03-14-2022 TSH 2.722 uIU/mL Normal 0.358-3.74 0 [facility] Comment on above: Performed By: #### T SH, CMP, LIPID, T7 #### [facility] [address] [address] [address] Osei Garcia MRI SHOULDER RT WO CONon MRI SHOULDER RT WO CON EXAMINATION: MRI SHOULDER RT WO CON HISTORY: Pain of right shoulder joint COMPARISON: No relevant comparison available. TECHNIQUE: A variety of imaging planes and parameters were utilized for visualization of suspected pathology. Imaging was performed without contrast. FINDINGS: ROTATOR CUFF REGION CUFF TENDONS: Moderately increased signal intensity in the supraspinatus and subscapularis tendons indicates tendon degeneration and/or tendinitis. Partial thickness tear mid distal supraspinatus tendon. CUFF MUSCLES: Normal appearing muscles. DELTOID: Normal. No significant atrophy or tear. LONG BICEPS TENDON: Partial thickness disruption of the intra-articular segment of the biceps tendon. LABRUM/BICEPS ANCHOR SUPERIOR: Increased signal and fraying of the superior labrum without visible detachment from the glenoid rim. No visible detachment of the labrum or biceps tendon from the glenoid rim. Findings are most consistent with a Type I SLAP lesion. ANTERIOR/INFERIOR: Attenuation consistent with a patient of this age. POSTERIOR: Mild attenuation consistent with a patient of this age. CAPSULE Normal. No visible capsular laxity or thickening. AC JOINT REGION AC JOINT: Moderate osteoarthropathy with mild-moderate narrowing of the underlying coracoacromial arch. AC LIGAMENTS: Normal acromioclavicular ligament. CC LIGAMENTS: Normal coracoclavicular ligaments. ACROMION: Normal horizontal (Type I) configuration. SUBACROMIAL BURSA: Normal. No significant effusion. HYALINE CARTILAGE: Mild to moderate chondromalacia of the glenohumeral joint OTHER BONES: Centrilobular/bone edema OTHER OBSERVATIONS: Negative. No other significant findings or glenohumeral effusion. 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 FINDINGS: BONES: Slight reversal of the normal lordotic curvature. Minimal grade 1 retrolisthesis of C5 on C6. DISC SPACES: Slight narrowing C5-C6. Mild bone encroachment on the right neural foramen secondary to uncovertebral joint spurring. PARASPINOUS: Negative. No paraspinous abnormality is seen. OTHER: Negative. IMPRESSION: 1. Mild degenerative changes C5-C6 which may contribute to patient's symptoms. Consider MRI for further evaluation. Electronically authenticated by: DEIDRA LANDERS Date: 2021-09-07 17:25 Normal [facility] XR LSPINE MIN 4 VIEWSon 08-18 XR LSPINE MIN 4 VIEWS EXAMINATION: XR LSPINE MIN 4 VIEWS HISTORY: Low back pain COMPARISON: No relevant comparison available. FINDINGS: BONES: 3 mm retrolisthesis of L3 on 4. Mild degenerative facet arthropathy L3-L4 through L5-S1. No fracture. DISC SPACES: No significant disc height narrowing, subluxation, or endplate abnormality. PARASPINOUS: Negative. No paraspinous abnormality is seen. OTHER: Negative. IMPRESSION: 1. Mild degenerative changes of the lower lumbar spine. Consider MRI for further evaluation if symptoms persist. Electronically authenticated by: DEIDRA LANDERS Date: 2021-09-07 17:26 Normal [facility] COVID-19 FRon 03-26-2021 SARS-CoV-2 (COVID-19) RNA MARLENE+probe Ql (Unsp spec) Negative Normal Negative [facility] Comment on above: Order Comment: Reaso n for Exam Encounter for screening for other viral diseases Healthcare Worker?: N Result Comment: Testing for SARS-CoV-2 by RT-PCR This test was developed and its performance characteristics determined by [employer] and validated at the [facility]. This test has not been FDA cleared or approved. This test has been authorized by FDA under an Emergency Use Authorization (EUA). This test has been validated in accordance with the FDA's Guidance Document (Policy for Diagnostics Testing in Laboratories Certified to Perform High Complexity Testing under CLIA prior to Emergency Use Authorization for Coronavirus Disease-2019 during the Public Health Emergency) issued on June 19, 2019. This test is only authorized for the duration of time the declaration that circumstances exist justifying the authorization of the emergency use of in vitro diagnostic tests for detection of SARS-CoV-2 virus and/or diagnosis of COVID-19 infection under section 564(b)(1) of the Act, 21 U.S.C. 360bbb-3(b)(1), unless the authorization is terminated or revoked sooner. PERFORMED BY: [place] [address] PATHOLOGIST [employer] FINA CROCKER M.D. Performed By: #### C OVID [address] [facility] #### [address] COVID Quick Testingon 2020 Result Negative [employer] Other Vital Signs Date Time Vital Sign Value Performing Clinician Facility 08-03-2023 08:40-0400 Diastolic blood pressure 90 mm[Hg] Garfield NILL [facility] 08-03-2023 08:40-0400 Heart rate 68 /min Garfield NILL [facility] 08-03-2023 08:40-0400 Respiratory rate 20 /min Garfield NILL [facility] 08-03-2023 08:40-0400 SaO2% (BldA) [Mass fraction] 100 % Garfield NILL [facility] 08-03-2023 08:40-0400 Systolic blood pressure 123 mm[Hg] Garfield NILL [facility] 08-03-2023 08:25-0400 Diastolic blood pressure 78 mm[Hg] Garfield NILL [facility] 08-03-2023 08:25-0400 Heart rate 64 /min Garfield NILL [facility] 08-03-2023 08:25-0400 Respiratory rate 15 /min Garfield NILL [facility] 08-03-2023 08:25-0400 SaO2% (BldA) [Mass fraction] 100 % Garfield NILL [facility] 08-03-2023 08:25-0400 Systolic blood pressure 116 mm[Hg] Garfield NILL [facility] 08-03-2023 08:20-0400 Diastolic blood pressure 72 mm[Hg] Garfield NILL [facility] 08-03-2023 08:20-0400 Heart rate 67 /min Garfield NILL [facility] 08-03-2023 08:20-0400 Respiratory rate 18 /min Garfield NILL [facility] 08-03-2023 08:20-0400 SaO2% (BldA) [Mass fraction] 100 % Garfield NILL [facility] 08-03-2023 08:20-0400 Systolic blood pressure 109 mm[Hg] Garfield NILL [facility] 08-03-2023 08:11-0400 Body temperature 97.88 [degF] Garfield NILL [facility] 08-03-2023 08:05-0400 Respiratory rate 14 /min Garfield NILL [facility] 08-03-2023 07:55-0400 Respiratory rate 12 /min Garfield NILL [facility] 08-03-2023 07:19-0400 Blood Pressure Location Garfield NILL [facility] 08-03-2023 07:19-0400 Body temperature 97.88 [degF] Garfield NILL [facility] 07-03-2023 08:04-0400 Blood Pressure Location Garfield NILL [facility] 07-03-2023 08:04-0400 Diastolic blood pressure 82 mm[Hg] Garfield NILL [facility] 07-03-2023 08:04-0400 Heart rate 81 /min Garfield NILL [facility] 07-03-2023 08:04-0400 Respiratory rate 16 /min Garfield NILL [facility] 07-03-2023 08:04-0400 Systolic blood pressure 116 mm[Hg] Garfield NILL [facility] 11-08-2021 09:30-0400 Body height 166.37 cm Mich Olexa Other [employer] Other 11-08-2021 09:30-0400 Body mass index (BMI) [Ratio] 25.4 kg/m2 Mich Olexa Other [employer] Other 11-08-2021 09:30-0400 Body weight 70.31 kg Mich Olexa Other [employer] Other 10-18-2021 15:15-0400 Body height 166.37 cm Mich Olexa Other [employer] Other 10-18-2021 15:15-0400 Body mass index (BMI) [Ratio] 25.4 kg/m2 Mich Olexa Other [employer] Other 10-18-2021 15:15-0400 Body weight 70.31 kg Mich Olexa Other [employer] Other Encounters Encounter Date Encounter Type Care Provider Facility Start: 08-20-2023 End: 09-17-2023 ambulatory [facility] Start: 08-03-2023 End: 08-04-2023 ambulatory Garfield TREVIÑO Facility:[facility] Start: 08-03-2023 End: 08-03-2023 Patient encounter procedure Garfield JOINERL [facility] Start: 07-30-2023 End: 08-18-2023 ambulatory [facility] Start: 07-03-2023 End: 07-04-2023 ambulatory Garfield R RHYSL Facility:[facility] Start: 07-03-2023 End: 07-03-2023 Patient encounter procedure Garfield JOINERL [facility] Start: 06-29-2023 ambulatory Garfield JOINERReece Facility:[facility] Start: 04-21-2022 End: 04-22-[address] KEISHA ESCUDERO . Facility:[facility] Start: 04-13-2022 End: 04-14-[address] KEISHA ESCUDERO . Facility:[facility] Start: 04-05-2022 End: 04-06-[address] KEISHA ESCUDERO . Facility:[facility] Start: 03-17-2022 Encounter for genera l adult medical examination without abnormal findings DR KEISHA ESCUDERO . [facility] Start: 03-14-2022 End: 03-15-[address] KEISHA ESCUDERO . Facility:[facility] Start: 03-14-2022 End: 03-15-2022 Encounter for general adult medical examination without abnormal findings DR KEISHA ESCUDERO . Facility:[facility] Start: 11-08-2021 End: 11-08-2021 ambulatory Mich Olexa Other [employer] Other Start: 11-08-2021 Encounter for other preprocedural examination Mich Olexa [facility] Start: 11-08-2021 Office outpatient vi sit 25 minutes Mich Olexa [facility] Start: 10-18-2021 End: 10-18-2021 ambulatory Mich Olexa Other [employer] Other Start: 10-18-2021 Office outpatient ne w 45 minutes Mich Olexa [facility] Start: 09-26-2021 End: 09-27-[address] KEISHA ESCUDERO . Facility:[facility] Start: 09-07-2021 End: 09-08-[address] KEISHA ESCUDERO . Facility:[facility] Start: 03-29-2021 End: 03-29-2021 ambulatory Leonel Gonzales Other [employer] Other Start: 03-29-2021 Telephone encounter Leonel [facility]LEGAS [facility] Start: 02-06-2021 End: 02-06-2021 ambulatory Andra Trejo Other [employer] Other Start: 02-06-2021 Nursing evaluation o f patient and report Andra Trejo [facility] [address] Procedures Date Procedure Procedure Detail Performing Clinician Start: 08-03-2023 Colonoscopy Garfield NILL Start: 11-17-2013 Colonoscopy Garfield NILL Start: 11-17-2013 Esophagogastroduodenoscopy Garfield NILL Extraction of wisdom tooth M ichsamantha NILL Total abdominal hyst erectomy with bilateral salpingo-oophorectomy Garfield [employer] Immunizations Immunization Date Immunization Notes Care Provider Fa [facility] 02-02-2021 SARS-CoV-2 (COVID-19 ) mRNA BNT-162b2 vax Garfield NILL [facility] 01-12-2021 SARS-CoV-2 (COVID-19 ) mRNA BNT-162b2 vax Garfield NILL [facility] Payers Date Payer Category Payer Unknown [id number] 1971 Unknown [id number] 2.16.84 [id number] 1971 Unknown [id number] 2.16.84 [id number] 1971 Unknown [id number] 2.16.84 [id number] 1971 Unknown [id number] 2.16.84 [id number] 1971 Unknown [id number] 2.16.84 [id number] 1971 Unknown [id number] 2.16.8 [id number] 1971 Unknown [id number] 2.16.8 [id number] 1971 Unknown [id number] 2.16.8 [id number] 1971 Unknown [id number] 2.16.8 [id number] 1959 Private Health Insurance [id number] 1959 Unknown [id number] Social History Date Type Detail Facility Sex Assigned At [facility] Start: 07-03-2023 Tobacco smoking status Ex-smoker (fi nding) [facility] Tobacco smoking status Never [facility] Functional Status Date Assessment Result Facility 08-03-2023 Functional Status N/A [facility] 07-03-2023 Functional Status N/A [facility] Clinical Notes 02-06-2021 to 08-06-2023 Note Date & Type Note Facility 08-06-2023 Note [id number] 1#1.00TIFF [facility] 08-03-2023 Evaluation + Plan note Extrac lalitha from: Title:ANES Post-operative Note - General Author: Nirmal Ortega Jr., DO Date:08/03/23 Plan Transfer/Discharge: Transfer/Discharge Discharge when meets criteria ( From PACU to Ambulatory Surgery Unit, and To home ). Extracted from: Title:ANES Pre-operative Note - Endo Author:Nirmal Farmer Jr., DO Date:08/03/23 Plan [place] [employer] (ASA) physical status classification: Class II. Anesthetic Preoperative Plan: Anesthesia General, and -TIVA. [facility]05-17-2024 Hospital Discharge instructions Patient Education 08/03/2023 08:15:16 Colonoscopy, Care After Surgery Salam (CUSTOM) Colonoscopy Care After Surgery Please read the instructions outlined below and refer to this sheet in the next few weeks. These discharge instructions provide you with general information on [facility] Your doctor may also give you specific instructions. While your treatment has been planned according to the most current medical practices available, unavoidable complications occasionally occur. If you have any problems or questions after discharge, please call your doctor. ACTIVITY You may resume your regular activity, but move at a slower pace for the next 24 hours. Take frequent rest periods for the next 24 hours. Walking will help get rid of the air and reduce the bloated feeling in your abdomen (belly). No driving for 24 hours (because of the anesthesia (medicine) used during the test). You may shower. Do not sign any important legal documents or operate any machinery for 24 hours (because of the anesthesia used during the test). NUTRITION Drink plenty of fluids. You may resume your normal diet as instructed by your doctor. Begin with a light meal and progress to your normal diet. Heavy or fried foods are harder to digestand may make you feel nauseated (sick to your stomach). Avoid alcoholic beverages for 24 hours or as instructed. MEDICATIONS You may resume your normal medications unless your doctor tells you otherwise. WHAT YOU CAN EXPECT TODAY Some feelings of bloating in the abdomen. Passage of more gas than usual. Spotting of blood in your stool or on the toilet paper. FOLLOW-UP Your doctor will discuss the results of your test with you. SEEK IMMEDIATE MEDICAL ATTENTION IF: There is more than a spotting of blood in your stool. There is abdominal distention (your abdomen is swollen). There is vomiting. You have a temperature over 101.5 F. There is abdominal pain or discomfort that is severe or gets worse throughout the day. 08/03/2023 08:15:13 Colon Polyps Colon Polyps Colon polyps are tissue growths inside the colon, which is part of the large intestine. They are one of the types of polyps that can grow in the body. A polyp may be a round bump or a mushroom-shapedgrowth. You could have one polyp or more than one. Most colon polyps are noncancerous (benign). However, some colon polyps can become cancerous over time. Finding and removing the polyps early can help prevent this. What are the causes? The exact cause of colon polyps is not known. What increases the risk? The following factors may make you more likely to develop this condition: Having a family history of colorectal cancer or colon polyps. Being older than 45 years of age. Being younger than 45 years of age and having a significant family history of colorectal cancer or colon polyps or a genetic condition that puts you at higher risk of getting colon polyps. Having inflammatory bowel disease, such as ulcerative colitis or Crohn's disease. Having certain conditions passed from parent to child (hereditary conditions), such as: ?Familial adenomatous polyposis (FAP). ?Mckeon syndrome. ?Turcot syndrome. ?Peutz Jeghers syndrome. ?MUTYH-associated polyposis (MAP). Being overweight. Certain lifestyle factors. These include smoking cigarettes, drinking too much alcohol, not gettingenough exercise, and eating a diet that is high in fat and red meat and low in fiber. Having had childhood cancer that was treated with radiation of the abdomen. What are the signs or symptoms? Many times, there are no symptoms. If you have symptoms, they may include: Blood coming from the rectum during a bowel movement. Blood in the stool (feces). The blood may be bright red or very dark in color. Pain in the abdomen. A change in bowel habits, such as constipation or diarrhea. How is this diagnosed? This condition is diagnosed with a colonoscopy. This is a procedure in which a lighted, flexible scope is inserted into the opening between the buttocks (anus) and then passed into the colon to examine the area. Polyps are sometimes found when a colonoscopy is done as part of routine cancer screening tests. How is this treated? This condition is treated by removing any polyps that are found. Most polyps can be removed during a colonoscopy. Those polyps will then be tested for cancer. Additional treatment may be needed depending on the results of testing. Follow these instructions at home: Eating and drinking Eat foods that are high in fiber, such as fruits, vegetables, and whole grains. Eat foods that are high in calcium and vitamin D, such as milk, cheese, yogurt, eggs, liver, fish, and broccoli. Limit foods that are high in fat, such as fried foods and desserts. Limit the amount of red meat, precooked or cured meat, or other processed meat that you eat, such as hot dogs, sausages, stroud, or meat loaves. Limit sugary drinks. Lifestyle Maintain a healthy weight, or lose weight if recommended by your health care provider. Exercise every day or as told by your health care provider. Do not use any products that contain nicotine or tobacco, such as cigarettes, e- cigarettes, and chewing tobacco. If you need help quitting, ask your health care provider. Do not drink alcohol if: ?Your health care provider tells you not to drink. ?You are , may be , or are planning to become . If you drink alcohol: ?Limit how much you use to: ?0 1 drink a day for women. ?0 2 drinks a day for men. ?Know how much alcohol is in your drink. In the [place] one drink equals one 12 oz bottle of beer (355 mL), one 5 oz glass of wine (148 mL), or one 1 oz glass of hard liquor (44 mL). General instructions Take emmo-vud-[id number] and prescription medicines only as told by your health care provider. Keep all follow-up visits. This is important. This includes having regularly scheduled colonoscopies. Talk to your health care provider about when you need a colonoscopy. Contact a health care provider if: You have new or worsening bleeding during a bowel movement. You have new or increased blood in your stool. You have a change in bowel habits. You lose weight for no known reason. Summary Colon polyps are tissue growths inside the colon, which is part of the large intestine. They are one type of polyp that can grow in the body. Most colon polyps are noncancerous (benign), but some can become cancerous over time. This condition is diagnosed with a colonoscopy. This condition is treated by removing any polyps that are found. Most polyps can be removed during a colonoscopy. This information is not intended to replace advice given to you by your health care provider. Make sure you discuss any questions you have with your health care provider. Document Revised: 06/23/2020 Document Reviewed: 06/23/2020 [employer] Patient Education 2022 [employer]. Follow Up Care 07/03/2023 08:34:05 With:Garfield TREVIÑO Address: [address], [address] [place] [phone]- Business (1) When:1 to 2 weeks [facility]04-16-2024 NoteChief Complaint consultation for colonoscopy HPI Staff 52 year old female presents on consultation from Dr. Escudero for screening colonoscopy. Denies abdominal or rectal pain. Reports scant bright red blood when wiping for which she contributes to chronic constipation and straining for bowel movements. Denies nausea or vomiting. No unexplained weight loss.Last colonoscopy completed 11/2013- unremarkable. Mother with history of colon cancer, diagnosed age64. History of Present Illness 52 yo female with h/o migraines, anxiety, referred for colorectal screening; denies change in bms or blood in stools; no abdominal complaints; on baby asa and Daypro daily, no SBE prophylaxis; abdominal operations significant for JOCELINE with bso, last colonoscopy 2013 wnl; fmhx of colon cancer in patient's mother, dx in her 60's, no fmhx of IBD; no tobacco use. Review of Systems PHQ Score Initial Depression Screen Score: 0 SCORE ROS - Provider Constitutional: no fever, no sweats, no weight loss. Eyes: yes glasses, no blurred vision, no visual loss. ENMT: no dentures, no hoarseness, no swallowing difficulties, no hearing loss, no ear infection(s),no nose bleeds. Cardiovascular: normal blood pressure, no chest pain, regular heartbeat, no heart murmur. Respiratory: no shortness of breath, no cough, no asthma, no wheezing. Gastrointestinal: no nausea, no vomiting, no diarrhea, no constipation, no blood in stool, no change in bowel habits, no abdominal pain, no hepatitis. Genitourinary: no kidney stones, no urine infection, no dysuria. Musculoskeletal: no pain, no weakness. Skin: no changing moles, no rash, no skin lumps. Neurologic: no seizures, no epilepsy, no headache. Psychiatric: no emotional or psychiatric problem. Heme/Lymph: no bleeding problems, no anemia, no blood clots, no transfusions. Allergy/Immunologic: no swollen lymph nodes/glands, no IV drug abuse. Other: Additional ROS info: Except as noted in the above Review of Systems and in the History of Present Illness, all other systems have been reviewed and are negative or noncontributory. Physical Exam Vitals & Measurements HR: 81(Peripheral) RR: 16 BP: 116/82 HT: 65 in HT: 166 cm WT: 74.0 kg WT: 162.8 lb BMI: 26.85 HEENT: normal conjunctiva, sclera clear, no scleral icterus, EOM intact, PERRLA, oral mucosa moist without lesions. Neck: trachea midline, no mass, symmetric, no thyromegaly or nodules, no adenopathy Respiratory: lungs CTA, respirations non labored. Cardiovascular: regular rate and rhythm, no murmur, no pedal edema or varicosities. Gastrointestinal: soft, non distended, no tenderness, no masses, no palpable hernias, diastasis recti no, no hepatosplenomegaly; normal bs Lymphatic: no cervical adenopathy, no supraclavicular adenopathy. Musculoskeletal: normal gait, digits and nails without infection, nodes, cyanosis, clubbing. Skin: no rashes, no lesions, no ulcers, no subcutaneous nodules, induration. Psychiatric/Neuro: oriented to time, place, person, judgement normal, affect appropriate for age, insight intact, no focal deficits. Tests: review of old records completed , Discussed surgical options, risks, and possible complications with patient. Assessment/Plan 1. Screening for malignant neoplasm of colon (Z12.11: Encounter for screening for malignant neoplasm of colon) plan colonoscopy under anesthesia, informed consent obtained. Follow-up No qualifying data available Problem List/Past Medical History Ongoing Anxiety BMI 26.0-26.9,adult Endometriosis Migraines Overweight Screening for malignant neoplasm of colon Historical No qualifying data Procedure/Surgical History Colonoscopy (11/2013), EGD - esophagogastroduodenoscopy (11/2013), Extraction of wisdom tooth, JOCELINE BSO - Total abdominal hysterectomy and bilateral salpingo-oophorectomy. Medications alprazolam 0.25 mg Tab, 0.25 mg= 1 tab(s), Oral, TID, PRN aspirin 81 mg Oral EC Tab, 81 mg= 1 tab(s), Oral, Daily Daypro 600 mg Tab, 1200 mg= 2 tab(s), Oral, Daily Multi Vitamins oral tablet, 1 tab(s), Oral, Daily Allergies No Known Allergies No Known Medication Allergies Social History Alcohol - Denies Alcohol Use, 07/03/2023 Substance Abuse - Denies Substance Abuse, 07/03/2023 Tobacco Former smoker, quit more than 30 days ago Tobacco Use:. Never Smokeless Tobacco Use:. Cigarettes, 0.5 per day. Started age 21.0 Years. Stopped age 36 Years., 07/03/2023 Family History Diabetes mellitus type 2: Father. Hypertension: Mother. Pancreatic adenocarcinoma: Father. Primary malignant neoplasm of colon: Mother. Immunizations Vaccine Date Status SARS-CoV-2 (COVID-19) mRNA BNT-162b2 vax 02/02/2021 Recorded SARS-CoV-2 (COVID-19) mRNA BNT-162b2 vax 01/12/2021 [facility]Comment on above:Result Comment: Electronically Signed By: Garfield TREVIÑO MD\Date and Time Signed: 07/03/23 08:54 [id number] Evaluation note * Encounter Date Diagnosis Assessment Notes Treatment Notes Treatment Clinical Notes Oct, Tear of right supraspinatus tendon (ICD-10 - M75.101) Previous MRI results again reviewed with patient. We will plan on arthroscopic shoulder surgery with possible rotator cuff tear. The patient has stated that they do not want to live in this condition any longer and would like to proceed with surgery. I feel that this is a reasonable option at this point and we may be able to improve function and decrease pain. We have discussed the process and procedure in detail including not eating or drinking 8 hrs prior to surgery, the need for general anesthesia and associated respiratory, cardiac, and patient position complications (such as nerve traction and compression). The benefit of regional block anesthesia and complications of arm numbness and neck pain. We discussed that pain and stifffness can be expected after surgery for months. The complications of infection, hardware pullout, cuff repair failure, termite control representative pain and stiffness are well known problems that can require repeat surgeries. Patient is fully aware that this shoulder may never be the same. We discussed that our team will do everything we can to help achieve the best outcome. Oct, Right shoulder tendonitis (ICD-10 - M77.8) Oct, Arthritis of right acromioclavicular joint (ICD-10 - M19.011) Oct, Pre-op exam (ICD-10 - Z01.818) [employer] Other 08-02-2022 Evaluation note* Encounter Date Diagnosis Assessment Notes Treatment Notes Treatment Clinical Notes Oct, Tear of right supraspinatus tendon (ICD-10 - M75.101) Oct, Right shoulder tendonitis (ICD-10 - M77.8) MRI reviewed with patient as signal change at the supraspinatus indicative of partial damage at the cuff/tendinosis. Discussed the radiologist interp of Type 1 SLAP lesion being a nonoperative problem and essentially a normal occurance at this point. We discussed and demonstrated gentle motion exercise and rotator cuff strengthening exercise. Discussed the use of non-steroidal anti-inflammatory medication. Oct, Arthritis of right acromioclavicular joint (ICD-10 - M19.011) Radiographs reviewed with patient as AC arthritis. We discussed and demonstrated gentle motion exercise and rotator cuff strengthening exercise. Discussed the use of non-steroidal anti-inflammatory medication. Patient declines formal therapy order, will work on rotator cuff strengthening exercises as instructed by her daughter/in-law who is a physical therapist. Instructed on proper body mechanics to avoid further injury/irritation at the shoulder. At this point I am not impressed with significant rotator cuff tear. Hopefully with strengthening therapy there will be improvement. If she has persistent pain we could consider arthroscopy A marcaine / kenalog cortisone injection was performed into the subacromial space under sterile technique. Patient tolerated the injection well with no adverse reaction. If no improvement with conservative treatment, could consider surgical arthroscopy. [employer] Other 06-22-2022 NotePROCEDURE: XR SHOULDER RT 2V or > HISTORY: Impingement syndrome of shoulder region COMPARISON: None. FINDINGS: BONES:No fracture, acute abnormality, or significant arthropathy. SOFT TISSUES:No visible soft tissue swelling. EFFUSION:None visible. OTHER: Negative. IMPRESSION: 1. No acute bone abnormality or significant degenerative changes. Electronically authenticated by: DEIDRA LANDERS Date: 2021-09-07 17:28[facility]11-21-2021 Evaluation note* Encounter Date Diagnosis Assessment Notes Treatment Notes Treatment Clinical Notes Jan, Contact with and (suspected) exposure to other viral communicable diseases (ICD-10 - Z20.828) Jan, Other Additional time spent conducting pre-visit phone call, screening for symptoms, instructions on social distancing, application and removal of PPE, and cleaning of examination room, equipment and supplies was preformed. Patient education given for testing methodology and results. Patient care instructions given in writting by [facility] document. [employer] Other Evaluation + Plan note Future Appointments Appointment Date:08/03/2023 08:00:00 AM Scheduled [facility] [place] [facility]No [facility] Other History general Narrative - [facility] Other History general Narrative - Reported* Type Description Date Surgical History hysterectomy [facility] Other Hospital course Narrative No data available for this section [facility] [place] [facility] Discharge instructions No data available for this section [facility] [place] Progress note No data available for this section [facility] [place] Summary Purpose Family History No Family History Records FoundNo Family History Records Found No data available for this section No data available for this section No Family History Records FoundNo Family History Records Found Advance Directives No Advanced Directives Records FoundNo Advanced Directives Records FoundNo Advanced Directives Records FoundNo Advanced Directives Records Found Additional Source Comments INFORMATION SOURCE (unrecogn ized section and content) DATE CREATED AUTHOR 04/04/2021 [facility] DATE CREATED AUTHOR AUTHOR'S ORGANIZ ATION 06/13/2022 [facility] DATE CREATED AUTHOR AUTHOR'S ORGANIZ ATION 08/10/2023 [facility] DATE CREATED AUTHOR AUTHOR'S ORGANIZ ATION 09/17/2023 [facility] REASON FOR VISIT (unrecogniz ed section and content) #16FULLY VACCINATED, NO POS COVID EXP, NO SYMPTOMS, SIDE EFFECTS ASSOCIATED WITH COVID VACCINE ON WED InformationRight Shoulder PainRecheck Right Shoulder Patient Care team informatio n (unrecognized section and content) Personnel Name: Keisha Escudero MD Address: Address: [address] [place] [address] Personnel Name: Keisha Escudero MD Address: Address: [address] [place] [address] FOR RECORDS PERTAINING TO PATIENTS WHO ARE OR HAVE BEEN ENROLLED IN A CHEMICAL DEPENDENCY/SUBSTANCEABUSE PROGRAM, SOME INFORMATION MAY BE OMITTED. This clinical summary was aggregated from multiple sources. Caution should be exercised in using it in the provision of clinical care. This summary normalizes information from multiple sources, and as a consequence, information in this document may materially change the coding, format and clinical context of patient data. In addition, data may be omitted in some cases. CLINICAL DECISIONS SHOULD BE BASED ON THE PRIMARY CLINICAL RECORDS. [facility] [employer] [facility]. provides no warranty or guarantee of the accuracy or completeness of information in this document.
[2024-03-29 13:00] LABS: Basophils Absolute Auto 0.1 10^3/uL (0.0-0.1); Basophils Percent Auto 0.9 % (0.2-2.0); Eosinophils Absolute Auto 0.1 10^3/uL (0.0-0.7); Hematocrit 40.2 % (36.0-48.0); Hemoglobin 13.7 g/dL (12.0-16.0); Immature Granulocytes Abs Auto 0.04 10^3/uL (0.00-0.03); Immature Granulocytes Pct Auto 0.6 % (0.0-0.5); Lymphocytes Absolute Auto 1.6 10^3/uL (1.2-3.8); Lymphocytes Percent Auto 22.1 % (20.5-60.0); Mean Corpuscular HGB Conc 34.1 g/dL (29.9-35.2); Mean Corpuscular Hemoglobin 29.7 pg (26.7-34.0); Monocytes Absolute Auto 0.6 10^3/uL (0.3-0.8); Monocytes Percent Auto 8.1 % (1.7-12.0); Neutrophils Absolute Auto 4.6 10^3/uL (1.4-6.5); Neutrophils Percent Auto 66.3 % (43.0-75.0); Platelet Count 339 10^3/uL (150-450); Red Blood Count 4.62 10^6/uL (4.20-5.40); Red Cell Distribution Width 12.6 % (11.0-15.0)
[2024-03-29 13:18] LABS: Estimated Average Glucose 103 mg/dL; Glycohemoglobin A1C 5.2 % (4.5-6.2)
[2024-03-29 15:54] LABS: Alanine Aminotransferase 18 U/L (14-59); Albumin Globulin Ratio 1.2; Albumin Level 3.5 g/dL (3.4-5.0); Alkaline Phosphatase 76 U/L (46-116); Anion Gap 12.8; Aspartate Amino Transferase 8 U/L (15-37); BUN Creatinine Ratio 16.8; Calcium 8.7 mg/dL (8.5-10.1); Carbon Dioxide 27.4 mmol/L (21.0-32.0); Chloride 109 mmol/L (98-107); Chol HDL Ratio 3.3; Cholesterol 186 mg/dL (<=200); Estimated GFR (African America >60 (>=60 mL/min/1.73m^2); Estimated GFR (Non-African Ame 58 (>=60 mL/min/1.73m^2); Free T3 1.62 pg/mL (2.18-3.98); Glucose 88 mg/dL (74-106); HDL Cholesterol 57 mg/dL (40-60); LDL Cholesterol Calculated 117.8 mg/dL; Potassium 3.2 mmol/L (3.5-5.1); Sodium 146 mmol/L (136-145); Thyroid Stimulating Hormone 1.869 uIU/mL (0.358-3.740); Total Protein 6.5 g/dL (6.4-8.2); Triglycerides 56 mg/dL (<=150); VLDL CHOLESTEROL 11.2 mg/dL
[2024-03-29 22:59] LABS: Bilirubin Total 0.4 mg/dL (0.2-1.0)
[2024-03-31 12:07] LABS: Insulin 10.5 uIU/mL (2.6-24.9)
== END 2024-03-29 12:36 | disposition home or self-care (01) ==
LOC: LAB 12:36
PROVIDERS: PCP Family Medicine; Visit Provider Family Medicine
DX: Z00.00 Encounter for general adult medical examination without abnormal findings (principal)
CPT/HCPCS: 36415; 80053; 80061; 83036; 83525; 83540; 84436; 84443; 84481; 85025